=== PATIENT | female | born 1945 ===

== ENCOUNTER 2021-01-05 09:15 | Inpatient (IN) | payer OTHER ==
[~2021-01-05] VITALS: Ht 165.1 cm; Wt 81.6 kg
[2021-01-14] MEDS ORDERED: DUI500 PO (18:28)
[2021-01-14] MEDS ORDERED: ELIQUIS2.5 MG PO (18:28)
[2021-01-14] MEDS ORDERED: PERCOCET 5-3251 EACH PO (18:28)
== END 2021-01-14 23:54 | DRG 470 ==
LOC: O/R 01-12 09:15 → SURH 01-12 10:57
PROVIDERS: ADMIT Orthopaedic Surgery; ATTEND Orthopaedic Surgery
PROC: 0SRC0J9 Replacement of Right Knee Joint with Synthetic Substitute, Cemented, Open Approach (ICD-10-PCS; principal; 2021-01-12 10:00)
DX: M17.11 Unilateral primary osteoarthritis, right knee (principal); I10 Essential (primary) hypertension; Z88.6 Allergy status to analgesic agent; Z20.822 Contact with and (suspected) exposure to COVID-19

== ENCOUNTER 2021-01-05 14:01 | Outpatient (CLI) | payer OTHER | END 2021-01-05 14:09 | disposition home or self-care (01) | LOC: EKG 14:01 | PROVIDERS: ATTEND Internal Medicine | DX: I10 Essential (primary) hypertension (principal); Z01.818 Encounter for other preprocedural examination; Z01.810 Encounter for preprocedural cardiovascular examination ==